=== PATIENT | female | born 1975 | race Caucasian/White ===

== ENCOUNTER 2019-02-11 08:27 | Emergency (ER) | payer BC ==
[2019-02-11 08:45] LABS: #Basophils 0.1 thou/uL (0.0-0.2); #Eosinphils 0.1 thou/uL (0.0-0.7); #Lymphocytes 3.6 thou/uL (1.20-3.40); #Monocytes 0.7 thou/uL (0.11-0.59); #Neutrophils 11.6 thou/uL (1.40-6.50); %Basophils 0.4 % (0.0-1.0); %Eosinophils 0.7 % (0.0-10.0); %Lymphocytes 22.2 % (21.0-51.0); %Monocytes 4.1 % (0.0-10.0); %Neutrophils 72.6 % (42.0-75.0); Hemoglobin 13.9 g/dL (12.0-16.0); Mean Corpuscular HGB CONC 32.1 g/dL (32.0-36.0); Mean Corpuscular Hemoglobin 27.6 pg (27.0-31.0); Mean Corpuscular Volume 86.1 fL (78.0-98.0); Mean Platelet Volume 6.4 fL (7.4-10.4); Platelet Count 353 thou/uL (130-400); RBC Distribution Width 12.5 % (11.5-14.5); Red Blood Cell (RBC) Count 5.03 mill/uL (4.20-5.40)
[2019-02-11] MEDS ORDERED: Ondansetron PF 4 MG/2 ML Vial ONE (08:49)
[2019-02-11 08:53] LABS: Bilirubin Negative (Negative); Blood, Urine Moderate (Negative); Clarity Clear (Clear); Glucose, Urine (Dipstick) Negative (Negative); Leukocyte Negative (Negative); Nitrite Negative (Negative); Protein, Urine (Dipstick) Negative (Neg-Trace); Urobilinogen 0.2 mg/dL (0.2-1.0); pH, Urine 6.5 (5.0-9.0)
[2019-02-11 08:54] LABS: Pregnancy Test - Urine (BHCG) Negative (Negative); Pregu Control Background? CLEAR/WHITE (CLR/WHITE); Pregu Control Bar Appear? YES (CONTROL BAR)
[2019-02-11 08:56] LABS: Bacteria/HPF 1+ HPF (None Seen); Squamous Epithelial 0-3 HPF (0-3); WBC/HPF 0-3 HPF (0-3)
[2019-02-11] MEDS ORDERED: Iopamidol 370 76% 100 ML VIAL ONE (09:00)
[2019-02-11 09:01] LABS: ALT (SGPT) 26 U/L (8-55); AST (SGOT) 17 U/L (5-34); Albumin 4.3 g/dL (3.5-5.0); Alkaline Phosphatase 107 U/L (40-150); Anion Gap 16 mmol/L (10-20); BUN (Urea Nitrogen) 15 mg/dL (7.0-18.7); Bilirubin, Total 0.3 mg/dL (0.2-1.2); Calc. Creatinine Clearance 0 mL/min (70-130); Carbon Dioxide 23 mmol/L (22-29); Chloride 101 mmol/L (98-107); Estimated GFR-MDRD Greater than 90; Globulin 3.6 g/dL (2.4-3.5); Glucose 110 mg/dL (70-105); Lipase 11 U/L (8-78); Potassium 3.8 mmol/L (3.5-5.1); Protein, Total 7.9 g/dL (6.0-8.3); Sodium 136 mmol/L (136-145)
[2019-02-11] MEDS ORDERED: Pantoprazole 40 MG VIAL ONE (09:22)
[2019-02-11] MEDS ORDERED: Ketorolac Tromethamine 30 MG/ML VIAL ONE (09:22)
[2019-02-11] MEDS ORDERED: Morphine 4 MG/ML VIAL ONE (09:40)
[2019-02-11] MEDS ORDERED: diphenhydrAMINE 50 MG/ML VIAL ONE (09:40)
[2019-02-11] MEDS ORDERED: Piperacillin/Tazobactam 4.5 GM VIAL ONE (09:48)
[2019-02-11] MEDS ORDERED: Sodium Chloride 0.9% 100 ML ONE (09:48)
--- NOTE | 2019-02-11 10:01 | RAD ---
PORTABLE CHEST: Date: 02/11/19 An AP portable film at 0844 hours shows the heart to be at upper limits of normal, perhaps mildly enl arged. The trachea is midline. There is no congestive change or pleural effusion. The lungs are clear . There is widening of the left AC joint, possibly due to old trauma. IMPRESSION: Borderline heart size. Otherwise no acute findings. POS: HOME
--- NOTE | 2019-02-11 10:17 | CT ---
CT ABDOMEN AND PELVIS WITH CONTRAST: Date: 02/11/[address] of the abdomen and pelvis was performed for evaluation of chest pain and right upper quadra nt pain. Axial slices were acquired, followed by coronal and sagittal reconstructions. FINDINGS: The lung bases are clear. The liver, spleen, and pancreas appear normal, as do the adrenal glands and kidneys. The gallbladder is generous in size, measuring about 9.0 cm in length. No wall thickening, inflammatory change, or calcified stones were seen. There is an equivocal lucency seen in the gallbla dder neck on the axial study, but it is difficult to tell if this is a fold or a lucent stone. I woul d have to at least wonder about the latter possibility. An ultrasound is recommended for follow-up. T he aorta is normal in caliber. The bowel shows no wall thickening, distention, or other acute change. There is no free air or free f luid. CT of the pelvis shows a cyst associated with the right ovary that is 4.0 cm in size. An elective ult rasound would be able to show more detail. There is no free fluid or inflammatory change. IMPRESSION: 1. Prominent size of gallbladder. Equivocal lucency in the neck, which may or may not be a stone. An ultrasound to see this better is recommended. 2. Mild increase in mesenteric nodes. This may be the patient's normal, or could be a mild case of m esenteric adenitis. 3. 3-4 cm lucency associated with the right adnexa. A cyst is suspected. POS: HOME
== END 2019-02-11 10:17 | disposition short-term general hospital (02) ==
LOC: BURERS 08:27
DX: R10.11 Right upper quadrant pain (principal)
CPT/HCPCS: 71045; 74177; 80053; 81003; 81015; 81025; 83690; 84484; 85025; 93005; 94760; 96374; 96375; C9113; J1200; J1885; J2270; J2405; J2543; J3490; Q9967